=== PATIENT | female | born 1975 | race Two or more races ===

== ENCOUNTER 2017-03-22 15:47 | Emergency (ER) | payer OTHER ==
[~2017-03-22] VITALS: Ht 152.4 cm; Wt 70.9 kg
[~2017-03-22 15:47] MED LIST: COLACE100 MG PO; DIABETIC MEDS; FISH OIL1 CAP; IRON325 M1 PO; LANTUS SOLOSTAR3 ML SQ; MILK OF MA2400 MG/10 PO; MOTRIN800 MG PO; NORCO 5/325 TAB1 TAB PO; NOVOLOG100 U/M SQ; PRENATABS RX TA1 TAB; TYLENOL650 MG PO
[2017-03-22] MEDS ORDERED: GLUCOTROL XL2.5 M1 PO (15:59)
[2017-03-22] MEDS ORDERED: LIPITOR (16:00)
[2017-03-22] MEDS ORDERED: INVOKANA100 MG PO (16:00)
[2017-03-22 16:30] LABS: BASO % 0.1 % (0-2); EOS % 1.2 % (0-7); EOSINOPHIL ABSOLUTE COUNT 0.1 tho/cmm (0.0-0.7); HGB-HEMOGLOBIN 16.1 gm/dl (12.0-15.5); IMMATURE GRANULOCYTES ABSOLUTE 0.04 tho/cmm (0-0.03); IMMATURE GRANULOCYTES PERCENT 0.5 % (0-0.3); LYMPH % 24.3 % (20-45); LYMPH ABSOLUTE COUNT 1.8 tho/cmm (0.8-4.5); MCH (MEAN CORPUSCULAR HGB) 31.8 pg (28.0-32.0); MCHC MEAN CORPUSCULAR HGB CONC 36.6 % (32.0-36.0); MCV (MEAN CELL VOLUME) 86.8 fl (82.0-96.0); MEAN PLATELET VOLUME 8.9 cmc (9.4-12.4); MONO % 4.9 % (0-12); MONOCYTE ABSOLUTE COUNT 0.4 tho/cmm (0.0-1.2); NEUTROPHIL ABSOLUTE COUNT 5.2 tho/cmm (1.6-8.0); NEUTROPHIL-AUTOMATED 5.2 tho/cmm (1.6-8.0); PLATELET COUNT 311 tho/cmm (150-450); RED BLOOD COUNT 5.07 mil/cmm (4.00-5.20); RED CELL DISTRIBUTION WIDTH 12.4 % (12.4-16.4); WHITE BLOOD COUNT 7.5 tho/cmm (4.0-10.0)
[2017-03-22 16:42] LABS: ANION GAP 15 mmol/L (0-20); BLOOD UREA NITROGEN 12 mg/dl (6-24); CALCIUM 8.6 mg/dl (8.5-10.5); CARBON DIOXIDE-VENOUS 22 mmol/L (22-32); CHLORIDE 108 mmol/l (96-110); CREATININE 0.58 mg/dl (0.50-1.10); GLUCOSE 198 mg/dL (70-110); POTASSIUM 3.4 mmol/L (3.7-5.1); SODIUM 142 mmol/L (135-145); eGFR VALUE FOR BLACK >90 mL/Min
[2017-03-22 16:45] LABS: PREGNANCY-SERUM NEGATIVE (NEGATIVE)
[2017-03-22] MEDS ORDERED: NORCO 5-325 TA1 EACH PO (17:55)
[2017-03-22] MEDS ORDERED: CYCLOBENZAPRINE10 M1 PO (17:55)
== END 2017-03-22 18:18 ==
LOC: EDMED → EDBD 15:47 → EDMED 15:47
PROVIDERS: Family Medicine
DX: S39.012A Strain of muscle, fascia and tendon of lower back, initial encounter (principal); S16.1XXA Strain of muscle, fascia and tendon at neck level, initial encounter; D27.1 Benign neoplasm of left ovary; E11.9 Type 2 diabetes mellitus without complications; Z79.4 Long term (current) use of insulin; V49.40XA Driver injured in collision with unspecified motor vehicles in traffic accident, initial encounter; Y92.410 Unspecified street and highway as the place of occurrence of the external cause
CPT/HCPCS: J7030; Q9967